=== PATIENT | female | born 1965 | race Caucasian/White ===

== ENCOUNTER 2016-12-05 09:30 | Emergency (ER) | payer OTHER ==
--- NOTE | 2016-12-05 12:13 | RAD ---
CHEST 1 VIEW AND ABDOMEN 2 VIEWS: Date: 12/05/16 HISTORY: Upper abdominal pain. FINDINGS/IMPRESSION: The heart size is normal. No focal areas of consolidation, pneumothorax, or pleural effusions. No fr ee air or differential fluid levels are seen. A nonspecific bowel gas pattern is present. There are degenerative changes in the spine. No suspicious calcifications are identified. POS: OFF
== END 2016-12-05 10:53 | disposition home or self-care (01) ==
LOC: MADERS 09:30
DX: M62.830 Muscle spasm of back (principal); E78.5 Hyperlipidemia, unspecified; I10 Essential (primary) hypertension; F17.210 Nicotine dependence, cigarettes, uncomplicated
CPT/HCPCS: 74022

== ENCOUNTER 2017-11-12 16:07 | Emergency (ER) | payer OTHER ==
[2017-11-12] MEDS ORDERED: Morphine 10 MG/ML VIAL ONE (19:05)
[2017-11-12] MEDS ORDERED: Diazepam 5 MG TAB ONE (19:05)
--- NOTE | 2017-11-12 20:29 | RAD ---
LEFT HIP TWO VIEWS: HISTORY: Fall. Left hip injury. FINDINGS: Minimal osteophytosis and joint space narrowing are present. Femoral head contour is maintained. No acute fracture or dislocation. Old postoperative changes and healing cortical changes of the left f emur are partially visualized. IMPRESSION: 1. Minimal osteoarthritic changes, left hip. 2. Postoperative changes, left femur. POS: BST
--- NOTE | 2017-11-12 20:31 | RAD ---
LEFT FEMUR TWO VIEWS: HISTORY: Fall. Left femur injury. FINDINGS: Two metallic fragments overly the proximal femoral shaft and a single long lag screw fragment at the level of the femoral condyles. Abundant benign appearing periosteal reaction and callus formation sp ans the mid to distal femoral shaft, in anatomic alignment. No acute fracture, dislocation, or aggre ssive osseous erosions are apparent. IMPRESSION: 1. Postoperative remnants and old healed left femoral fracture. 2. No acute osseous abnormalities are demonstrated. POS: BST
== END 2017-11-12 20:47 | disposition home or self-care (01) ==
LOC: MADERS 16:07
DX: S70.02XA Contusion of left hip, initial encounter (principal); E78.5 Hyperlipidemia, unspecified; I10 Essential (primary) hypertension; F17.210 Nicotine dependence, cigarettes, uncomplicated; Z79.891 Long term (current) use of opiate analgesic; Z79.899 Other long term (current) drug therapy; W19.XXXA Unspecified fall, initial encounter
CPT/HCPCS: 96372; J2270

== ENCOUNTER 2018-11-01 16:33 | Emergency (ER) | payer OTHER ==
[2018-11-01 17:06] LABS: Bilirubin Negative (Negative); Blood, Urine Trace (Negative); Glucose, Urine (Dipstick) Negative (Negative); Leukocyte Negative (Negative); Nitrite Negative (Negative); Protein, Urine (Dipstick) Negative (Neg-Trace); Specific Gravity, Urine 1.025 (1.005-1.030); Urobilinogen 0.2 mg/dL (0.2-1.0); pH, Urine 6.5 (5.0-9.0)
[2018-11-01 17:10] LABS: #Basophils 0.1 thou/uL (0.0-0.2); #Eosinphils 0.2 thou/uL (0.0-0.7); #Monocytes 0.5 thou/uL (0.11-0.59); #Neutrophils 7.1 thou/uL (1.40-6.50); %Basophils 0.7 % (0.0-1.0); %Eosinophils 1.6 % (0.0-10.0); %Lymphocytes 20.4 % (21.0-51.0); %Monocytes 4.9 % (0.0-10.0); %Neutrophils 72.4 % (42.0-75.0); Hemoglobin 15.1 g/dL (12.0-16.0); Mean Corpuscular HGB CONC 31.4 g/dL (32.0-36.0); Mean Corpuscular Volume 92.2 fL (78.0-98.0); Mean Platelet Volume 6.7 fL (7.4-10.4); Platelet Count 302 thou/uL (130-400); RBC Distribution Width 12.7 % (11.5-14.5); Red Blood Cell (RBC) Count 5.21 mill/uL (4.20-5.40); White Blood Cell (WBC) Count 9.8 thou/uL (4.8-10.8)
[2018-11-01 17:11] LABS: Clarity Hazy (Clear)
[2018-11-01 17:14] LABS: Bacteria/HPF Rare-Few HPF (None Seen); RBC/HPF 21-50 HPF (0-3); WBC/HPF 0-3 HPF (0-3)
[2018-11-01 17:15] LABS: Crystals/HPF 2+ AMORPH URATES HPF (Negative)
[2018-11-01 17:23] LABS: Anion Gap 16 mmol/L (10-20); BUN (Urea Nitrogen) 16 mg/dL (9.8-20.1); Calc. Creatinine Clearance 0 mL/min (70-130); Calcium 9.5 mg/dL (7.8-10.44); Carbon Dioxide 19 mmol/L (22-29); Chloride 111 mmol/L (98-107); Estimated GFR-MDRD 77; Glucose 88 mg/dL (70-105); Potassium 3.9 mmol/L (3.5-5.1); Sodium 142 mmol/L (136-145)
--- NOTE | 2018-11-01 20:41 | CT ---
CT ABDOMEN AND PELVIS NONCONTRAST: 11/01/18 HISTORY: Left flank pain. FINDINGS: Each renal collecting system, ureter, and the urinary bladder are incompletely distended. A lobular c alcific density at the left renal pelvis is 1.1 cm greatest diameter. Smaller calcifications are pre sent within nondilated calyces of the left kidney. No stones are apparent on the right. Lack of contrast limits evaluation for other abnormalities. No evidence of bowel obstruction or infla mmation. Prominent calcification throughout the arterial structures. Scattered diverticula in the col on without adjacent inflammation. IMPRESSION: Nonobstructing left renal calculi, measuring up to 1.1 cm. Atherosclerosis. POS: MARLEEN
== END 2018-11-01 19:17 | disposition home or self-care (01) ==
LOC: MADERS 16:33
DX: M54.5 Low back pain (principal); R31.9 Hematuria, unspecified; K21.9 Gastro-esophageal reflux disease without esophagitis; E78.5 Hyperlipidemia, unspecified; I10 Essential (primary) hypertension; F17.210 Nicotine dependence, cigarettes, uncomplicated; Z79.51 Long term (current) use of inhaled steroids; Z79.899 Other long term (current) drug therapy; Z79.891 Long term (current) use of opiate analgesic
CPT/HCPCS: 36415; 74176; 80048; 81003; 81015; 85025; 87086